=== PATIENT | female | born 1945 | race Caucasian/White ===

== ENCOUNTER 2021-07-04 10:19 | Emergency (ER) | payer MEDICARE, SELFPAY ==
[2021-07-04 10:20] VITALS: BP 168/78; PULSE 81; RESP 17; TEMP 36.4; O2SAT 94; BMI 24.5
[2021-07-04 10:38] VITALS: BP 174/80; PULSE 85; RESP 20; O2SAT 99
[2021-07-04 10:50] VITALS: BP 150/73; PULSE 82; RESP 18; O2SAT 95
--- NOTE | 2021-07-04 10:58 | EKG12_ITS ---
Test Reason : DIZZY/PALPS Blood Pressure : / mmHG Vent. Rate : 078 BPM Atrial Rate : 078 BPM P-R Int : 134 ms QRS Dur : 084 ms QT Int : 342 ms P-R-T Axes : 042 002 040 degrees QTc Int : 389 ms Sinus rhythm with Premature atrial complexes Otherwise normal ECG Confirmed by CESAR MORENO, AXEL ([id number]), restaurant expeditor ALEXUS SENIOR ([id number]) on 07/07/2021 9:59:51 AM Referred By: LONA/MARIBELL Confirmed By:AXEL GUERRERO MD
--- NOTE | 2021-07-04 10:59 | EDS_ITS ---
HPI History of Present Illness Chief Complaint: Palpitations Informant: patient Onset/Context/Timing Onset: Weeks Narrative Narrative: Patient presents secondary to having intermittent palpitations for the last several weeks. She states when she lays down she will have a spinning sensation. She called her PCP today who recommended she come to the emergency room. She denies chest pain. She does not feel she is going to pass out. PFSH PFSH Home Medications sulfamethoxazole-trimethoprim 1 ea PO MOWEFR 06/10/14 [History Last Taken 04/03/16] tacrolimus [Astagraf Xl] 2 mg PO DAILY 06/10/14 [History Last Taken 04/03/16] alendronate 70 mg PO QWEEK 06/11/14 [History Last Taken 04/02/16] calcium carbonate-vitamin D3 [Os-Magdiel 500MG + D] 1 tab PO BIDCM 06/11/14 [History Last Taken 04/03/16] cholecalciferol (vitamin D3) [D3-2000] 2,000 unit PO DAILY 06/11/14 [History Last Taken 04/03/16] fluticasone propionate 2 spray NASAL DAILY 06/11/14 [History Last Taken 04/03/16] magnesium L-lactate [Mag-Tab Sr] 84 mg PO BID 06/11/14 [History Last Taken 04/03/16] multivitamin with folic acid [Thera] 1 tab PO DAILY 06/11/14 [History Last Taken 04/03/16] mycophenolate mofetil 500 mg PO BID 06/11/14 [History Last Taken 04/03/16 MG] Allergy/AdvReac Type Severity Reaction Status Date / Time Penicillins Allergy Rash Verified 07/04/21 10:19 Surgical History History of lumpectomy Liver transplant recipient Social History Smoking Status: Never smoker ROS ROS ED Constitutional Constitutional ED: Denies chills or fever(s) Eyes Eyes: Denies change in vision ENT ENT ED: Denies sore throat Cardiovascular Cardiovascular: Reports palpitations and racing heartbeat; Denies chest pain Respiratory/Chest Respiratory/Chest: Denies cough or dyspnea Gastrointestinal Gastrointestinal: Denies abdominal pain, nausea or vomiting Genitourinary Genitourinary ED: Denies dysuria Musculoskeletal Musculoskeletal: Denies back pain or neck pain Integumentary Denies rash Neurologic Neurologic: Denies headache(s) or weakness Allergic/Immunologic Allergic/Immunologic ED: Denies urticaria EXAM Physical Exam Const Vital Signs: 07/04/21 10:20 07/04/21 10:38 07/04/21 10:50 Temperature 97.5 F L Temperature Source Temporal Pulse Rate 81 85 82 Respiratory Rate 17 20 H 18 Respiratory Effort Normal Non-Labored Blood Pressure 168/78 H 174/80 H 150/73 H Blood Pressure Mean 108 111 98 Pulse Ox 94 99 95 Oxygen Delivery Method Room Air Room Air Room Air 07/04/21 12:10 Temperature Temperature Source Pulse Rate 82 Respiratory Rate 19 H Respiratory Effort Blood Pressure 141/103 H Blood Pressure Mean 115 Pulse Ox 96 Oxygen Delivery Method Room Air Positive well nourished and well developed General Appearance ED: well developed HEENT Reports moist mucous membranes Eyes PERRL and EOMs intact bilaterally Neck supple Chest Wall inspection of chest normal and palpation of chest normal Resp normal respiratory effort and clear to auscultation bilaterally Cardio regular rate and regular rhythm GI normal to inspection, nondistended, normoactive bowel sounds and non-tender Palpation: soft Extremity normal to inspection Neuro oriented x3 Sensorium / Orientation: alert Psych mental status grossly normal Skin no rashes or lesions noted MDM MDM MDM Narrative Medical decision making narrative: Patient placed on electronic device monitor. EKG and lab work obtained. Chest x-ray ordered. Lab Data Attestation: I reviewed the patient's lab results. Labs: Laboratory Results - last 24 hr 07/04/21 07/04/21 07/04/21 11:50 11:50 11:55 WBC 6.1 RBC 5.31 Hgb 13.9 Hct 44.2 MCV 83.2 MCH 26.2 L MCHC 31.4 L RDW Std Deviation 42.8 RDW Coeff of Kervin 14.1 Plt Count 197 MPV 9.1 Immature Gran % (Auto) 0.200 Neut % (Auto) 70.3 H Lymph % (Auto) 23.1 [place] % (Auto) 4.4 Eos % (Auto) 1.5 Baso % (Auto) 0.5 Absolute Neuts (auto) 4.3 Absolute Lymphs (auto) 1.41 Nucleated RBC % 0 Sodium 139 Potassium 3.9 Chloride 106 Carbon Dioxide 30.0 Anion Gap 3 L BUN 13 Creatinine 0.80 Estim Creat Clear Calc 45.84 Est GFR (MDRD) Af Amer 89 Est GFR (MDRD) Non-Af 74 BUN/Creatinine Ratio 16.2 Glucose 112 H Calcium 9.2 Total Bilirubin 0.40 Direct Bilirubin 0.11 AST 56 H ALT 53 Alkaline Phosphatase 187 H Total Protein 9.0 H Albumin 4.0 Globulin 5.0 H Urine Color Yellow Urine Clarity Clear Urine pH 8.0 Ur Specific [place] 1.010 Urine Protein Negative Urine Glucose (UA) Normal Urine Ketones Negative Urine Occult Blood 10 H Urine Nitrite Negative Urine Bilirubin Negative Urine Urobilinogen Normal Ur Leukocyte Esterase Negative Urine RBC 0 SEEN Urine WBC 0 SEEN Ur Squamous Epith Cells 0 SEEN Urine Bacteria 0 SEEN Urine Mucus 0 SEEN Radiography Chest X-Ray - ED: 1 View, Read by ED Physician, Normal, Heart, Lungs and Mediastinum Diagnostic Testing: Clinical Impression(s) from Imaging Studies Chest X-Ray 07/04/21 11:35 IMPRESSION: Normal x-ray examination of the chest. Electronically Signed: Oleg Rivers MD at 12:06 EDT , EKG Initial EKG: Attestation: I personally reviewed and interpreted this EKG as follows: Interpretation: Sinus Rhythm (Sinus at 76 with PACs. No acute ischemia.) Treatment and Re-Evaluation Narrative: Repeat evaluation patient resting comfortably. Test results reviewed with her. LFTs compared to recent labs on the eighth and not significantly changed. Patient has follow-up scheduled with her liver specialist. At this time I see no acute abnormalities to explain her palpitations. She does have evidence of PACs on EKG which I explained to her are not dangerous. She is reassured with these findings and will follow with her PCP as needed. Discharge Plan Triage Chief Complaint: Palpitations ED Provider: Lorelei Gandara Dx/Rx/DC Orders Clinical Impression: Palpitations Instructions: ED Palpitations Prescriptions: No Action sulfamethoxazole-trimethoprim 1 EACH tablet 1 ea PO MOWEFR RF: 0 tacrolimus [Astagraf XL] 1 MG Cap.Er.24h 2 mg PO DAILY RF: 0 mycophenolate mofetil 250 MG capsule 500 mg PO BID RF: 0 alendronate 70 MG tablet 70 mg PO QWEEK RF: 0 fluticasone propionate 1 SPRAY Nasal.Sry 2 spray NASAL DAILY RF: 0 magnesium L-lactate [Magtab] 84 MG Tablet.Er 84 mg PO BID RF: 0 calcium carbonate-vitamin D3 [Oyster Shell Calcium-Vit D3] 1 TABLET tablet 1 tab PO BIDCM RF: 0 cholecalciferol (vitamin D3) [D3-2000] 2,000 UNIT capsule 2,000 unit PO DAILY RF: 0 multivitamin with folic acid [Thera] 1 TABLET tablet 1 tab PO DAILY RF: 0 Primary Care Provider: Jovanna Vásquez Referrals: Jovanna Vásquez MD [Primary Care Provider] - As Needed Disposition Disposition: Home, Self Care
--- NOTE | 2021-07-04 11:35 | RAD_ITS ---
STUDY: X-RAY CHEST REASON FOR EXAM: Female, 76 years old. palpitations TECHNIQUE: Single AP portable view of the chest. COMPARISON: 04/03/2016 FINDINGS: The lungs are clear and expanded. There is no demonstrated pleural abnormality. Normal size heart. Normal mediastinum and emilio. Normal visualized pulmonary arteries. Normal visualized aortic arch and descending thoracic aorta. Normal visualized thoracic spine. Normal visualized ribs, clavicles, and shoulders. There is no demonstrated abnormality of the visualized soft tissue structures of the upper abdomen. RAD/Chest 1 View (Portable) IMPRESSION: Normal x-ray examination of the chest. Electronically Signed: Oleg Rivers MD at 12:06 EDT ,
[2021-07-04 12:00] LABS: Bacteria 0 SEEN /hpf (None Seen); Mucous, Urine 0 SEEN /hpf (<or=2+); Red Blood Cells-Urine 0 SEEN /hpf (0-5); Squamous Epithelial Cells - UA 0 SEEN /hpf (5-10); White Blood Cells 0 SEEN /hpf (0-5)
[2021-07-04 12:06] LABS: Color, Urine Yellow (Yellow); Glucose, Dipstick Normal (Normal); Ketone-Dipstick Negative (Negative); Leukocyte Esterase-Dipstick Negative /ul (Negative); Nitrite-Dipstick Negative (Negative); Occult Blood-Urine 10 /ul (Negative); Protein-Dipstick Negative (Negative); Urine Bilirubin Dipstick Negative (Negative); Urine Clarity Clear (Clear); Urine Urobilinogen Normal (Normal)
[2021-07-04 12:07] LABS: Absolute Lymphocyte Count 1.41 X10^3/uL (0.83-4.51); Absolute Neutrophil Count 4.3 X10^3/uL (2.0-7.7); Basophil# 0.03 X10^3/uL; Basophil% 0.5 % (0-1); Eosinophil# 0.09 X10^3/uL; Eosinophils% 1.5 % (0-5); Hematocrit 44.2 % (37-47); Hemoglobin 13.9 g/dL (12.0-15.0); Lymphocyte # 1.41 X10^3/ul (0.83-4.51); Lymphocyte % 23.1 % (19-41); Mean Corp Hgb Conc 31.4 g/dL (32-36); Mean Corpuscular Hgb 26.2 pg (27.0-32.0); Mean Corpuscular Volume 83.2 fL (81-99); Mean Platelet Vol. 9.1 fl (6.2-12.0); Monocyte# 0.27 X10^3/uL; Monocyte% 4.4 % (0-10); NRBC Flagged by Analyzer 0 % (0-5); Neutrophil # 4.29 X10^3/uL (2.7-7.7); Neutrophil % 70.3 % (47-70); Platelet Count 197 K/mm3 (150-450); RBC Distribution Width CV 14.1 % (11.6-14.6); RBC Distribution Width SD 42.8 fl (35.1-43.9); Red Blood Count 5.31 M/mm3 (4.2-5.4); White Blood Count 6.1 K/mm3 (4.4-11.0)
[2021-07-04 12:10] VITALS: BP 141/103; PULSE 82; RESP 19; O2SAT 96
[2021-07-04 12:28] LABS: AST(SGOT) 56 U/L (15-37); Alanine Aminotransfer ALT/SGPT 53 U/L (13-56); Alkaline Phosphatase 187 U/L (45-117); Anion Gap 3 (5-15); BUN 13 mg/dL (7-18); BUN/Creat Ratio 16.2 RATIO (10-20); Bilirubin, Direct 0.11 mg/dL (0.00-0.30); Calcium,Total 9.2 mg/dL (8.5-10.1); Chloride 106 mmol/L (98-107); EST Glomerular Filtration Rate 74 mL/min (>60); Est Glom Filt Rate - Afr Amer 89 mL/min (>60); Estimated Creatinine Clearance 45.84 ml/min; Glucose 112 mg/dL (74-106); Potassium 3.9 mmol/L (3.5-5.1); Sodium Level 139 mmol/L (136-145)
[2021-07-04 13:42] VITALS: BP 151/87; PULSE 90; RESP 16; O2SAT 99
== END 2021-07-04 13:50 | disposition home or self-care (01) ==
PROVIDERS: Emergency Provider Emergency Medicine; PCP Internal Medicine; Visit Provider Emergency Medicine
DX: R00.2 Palpitations (principal); I49.1 Atrial premature depolarization
CPT/HCPCS: 71045; 80048; 80076; 81001; 85025; 93005; 99284

== ENCOUNTER 2022-08-28 09:00 | Outpatient (RCR) | payer MEDICARE, SELFPAY ==
--- NOTE | 2022-07-17 16:30 | HP.OTEVAL ---
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 Date of Evaluation: 07/17/22 Occupational Therapist: Corry Ponce, HARMONYR/Camila, CHT - Subjective This 77 year old female was seen for OT eval with dx of left Primary osteoarthritis of 1st Carpometacarpal joint. Pt states she had a number of years of discomfort and about a year ago she did see Dr. Conway. and they did discuss sx. Pt states she waited another year before she decided to have sx. DOS was .Pt arrivers today 1 week 3 days s/p. for custom orthosis following a left CMC arthroplasty. pt is right handed. pt states at this time she is limited with all ADLs and IADLS. - Pain left hand/wrist 5 Pain Intensity Range: 4, 8 - ROM Wrist: right 45/55 left CMC: right +5 left MP: right 60 left 35 IP: right 60 left 35 Radial Abduction: right 45 left 30* Opposition: Kapandji opposition scale right 10 left 6 - Strength Sales And Marketing Representative: right 20# left NT Lateral Pinch: right 8# left NT Tripod Pinch: right 6# left NT Strength Comments: left dedicated driver strength will be tested s/p 6 and pinch strength at s/p week 8 - Sensation Sensation Comments: denies - Quick DASH-Disab of Arm,Shoulder& Hand Quick DASH Score: 75.0000 - Goals Goal:100% adherence to protocol: Yes Comment: CMC arthroplasty guidelines Goal:Daily scar massage when approriate: Yes Goal:ROM equal to unaffected hand: Yes Goal:Sales And Marketing Representative/Pinch strength at least 75% of unaffected hand: Yes Comment: strengthening will be initiated at week 6 unless otherwise specified by Goal:No pain with affected hand use: Yes Goal:Full use of affected hand in daily activities including: Yes Comment: cooking/cleaning and laundry Goal:Decrease scar hypersensitivity: Yes Comment: orthosis use Other Goal: pt will demo understanding of donning/doffing orthosis by end of 1st session. pt will demo understanding of orthosis use precautions and skin care by end of 1st visit - Rehabilitation General Assessment: DOS was .Pt arrivers today 1 week 3 days s/p. for custom orthosis following a left CMC arthroplasty to provide protection and support and allow for reconstruction to heal. Pt demo need for skilled OT services 1-2x week for 6-8 weeks to transition pt from immobility to using left UE with ADLs and IADLS at OF. Today therapist cara. custom orthosis for CMC arthroplasty- ed. pt on skin care and precautions- pt demo understanding and ind. doffing and donning of custom orthosis. therapist ed. pt on ROM of shoulder ROM, elbow and forearm- along with tendon glides to fingers and IP flexion of thumb while in orthosis- pt was given hand out and demo understanding of her HEP and agree to POC. Rehabilitation Potential: Good - Anticipated Interventions A/AAROM/PROM, Strengthening, Scar Care, Triggerpoint Release, Desensitization, Modalities, Orthoses, Joint Protection/Energy Conservation, Ergonomic Education, Fine Motor Coord/Ryan, Education re assistive Equipment, Education re Diagnosis, Caregiver Training, Home Program - Visit Plan Frequency: 1-2x /Week Duration: 2 Months General Plan: 1-2weeks s/p custom thumb spica IPJ free. scar care, full finger ROM, full wrist ROM , MP and IPJ motion of thumb, Opposition to small finger while supporting CMC to prevent rocking at base of thumb and hand flat- short arch wrist ROM to pt tolerance. 4wks s/p PROM cmc motion ( if needed). 5-6wks pre-cara thumb orthotic daytime use -custom orthosis use and night and with heavy activity until 12 weeks s/p. 6-7wks strengthening. at [address] carson full finger & wrist motion- hand flat and opposition to small finger between DIPJ & PIPJ TEXT: Thank you for the opportunity to evaluate your patient. For Medicare and Medicare HMO plans, please review the plan of care and approve it. It will need to be FAXED BACK to us at [phone] for Medicare purposes. Please let me know if there are questions or concerns regarding this plan of care. Physician Signature: Date:
--- NOTE | 2022-08-28 09:55 | HP.OTREVAL ---
Dr. 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 Please see the progress note below for an update on the occupational therapy plan of care! Subjective: Pt stated she is going to the DrGena on . Pt arrives 7 weeks 2 days s/p from CMC arthroplasty - pt states she is doing well- states she made cookies- out of splint- pt reports she is IND with all ADLs and IADLs. pt is mopping floor- doing dishes etc. pt is opening jars for meal prep. Objective/Function: left wrist ROM 45/45. left MP 45. PROM- left IP 60. AROM- left IP 45. left brasswind instrument repairer strength 15# right is 20#. Lateral Pinch: right 8# left 4#. Tripod Pinch: right 6# left 2# Plan Plan: pt to continue with HEP and return to normal use of left hand with ADls and IADLs. d/c splint as able. use comfort cool brace for heavy cleaning, or pushing grocery cart. pt progressing well Goals - Goals Patient Goals: Improve Fine Motor Skills, Use Hand/Wrist/Arm Normally Again Goal:100% adherence to protocol: Yes Goal:Daily scar massage when approriate: Yes Goal:ROM equal to unaffected hand: Yes Goal:Hematology Nurse/Pinch strength at least 75% of unaffected hand: Yes Goal:No pain with affected hand use: Yes Goal:Full use of affected hand in daily activities including: Yes Goal:Decrease scar hypersensitivity: Yes Other Goal: pt will demo understanding of donning/doffing orthosis by end of 1st session. pt will demo understanding of orthosis use precautions and skin care by end of 1st visit Anticipated Interventions Anticipated Interventions: A/AAROM/PROM, Strengthening, Scar Care, Triggerpoint Release, Desensitization, Modalities, Orthoses, Joint Protection/Energy Conservation, Ergonomic Education, Fine Motor Coord/Ryan, Education re assistive Equipment, Education re Diagnosis, Caregiver Training, Home Program Please do not hesitate to contact me at [phone] by phone or if you have questions or concerns regarding this new plan of care! Sincerely, Corry Ponce, OTR/L, CHT
== END 2022-08-28 19:00 | disposition home or self-care (01) ==
LOC: OT 09:00
PROVIDERS: PCP Internal Medicine; Referring Provider Orthopaedic Surgery; Visit Provider Orthopaedic Surgery
DX: M18.12 Unilateral primary osteoarthritis of first carpometacarpal joint, left hand (principal)
CPT/HCPCS: 97110; 97140; 97166; 97530; 97760